=== PATIENT | female | born 1955 | race Caucasian/White ===

== ENCOUNTER 2019-01-30 18:01 | Emergency (ER) | payer OTHER ==
[2019-01-30 18:51] VITALS: BP 145/99
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
== END 2019-01-30 19:50 | disposition home or self-care (01) ==
LOC: UCEAST 18:01
DX: S16.1XXA Strain of muscle, fascia and tendon at neck level, initial encounter (principal); V49.40XA Driver injured in collision with unspecified motor vehicles in traffic accident, initial encounter; Y92.410 Unspecified street and highway as the place of occurrence of the external cause
CPT/HCPCS: 99212; G0463